=== PATIENT | male | born 1955 | race Caucasian/White ===

== ENCOUNTER 2021-07-09 10:14 | Emergency (ER) | payer BC, SELFPAY ==
[2021-07-09 11:03] VITALS: BP 131/90; PULSE 57; RESP 18; TEMP 37.1; O2SAT 99
--- NOTE | 2021-07-09 11:31 | ED.SKABFB ---
HPI - Skin/Abscess/Foreign Bdy General Chief complaint: Skin/Abscess/Foreign Body Stated complaint: Rash Time Seen by Provider: 07/09/21 11:31 Source: patient and RN notes reviewed Mode of arrival: ambulatory Limitations: no limitations History of Present Illness HPI narrative: 66-year-old male presents to the [facility] with complaints of a rash that is now red, raised and warm to the right forearm. Patient states he was clearing brush approximately 3 weeks ago and broke out in a rash, has been treating it at home over the last 3 or 4 days has become red, raised and increasingly itchy. Denies any fevers. Had been using expq-loy-uwihtrx treatments such as calamine and hydrocortisone and until 3 or 4 days ago the rash was resolving. Rash to the left anterior lower leg has improved Related Data Allergies Allergy/AdvReac Type Severity Reaction Status Date / Time No Known Allergies Allergy Unknown NONE Unverified 09/24/17 09:38 Review of Systems Review of Systems: All systems reviewed & are unremarkable except as noted in HPI and below Constitutional: Constitutional: Reports no additional constitutional complaints, Denies chills and Denies fever(s) Eyes: Eyes: Reports no additional eye complaints ENT: Reports system reviewed and no additional complaints, except as documented Cardiovascular: Cardiovascular: Reports no additional cardiovascular complaints Respiratory: Respiratory: Reports no additional respiratory complaints Musculoskeletal: Musculoskeletal: Reports no additional musculoskeletal complaints Integumentary/Breasts: Skin/Breast: Reports as per HPI and Reports rash Neurologic: Reports system reviewed and no additional complaints, except as documented Psychiatric: Psychiatric: Reports no additional psychiatric complaints Allergic/Immunologic: Allergic/Immunologic: Reports no additional allergic/immunologic complaints [facility] Past Medical History Medical History (Updated 07/09/21 @ 18:11 by Elo Forte) No significant medical problems Surgical History Surgical History (Updated 07/09/21 @ 18:11 by Elo Forte) H/O inguinal hernia repair Family History Family History Father Family history of heart disease in male family member before age 55 Other Family history of cardiovascular disease Social History Social History (Updated 07/09/21 @ 18:12 by Elo Forte) Smoking status: Never smoker Alcohol intake: never Living arrangements: with family Occupation/Education: occupation Gender identity (if verbalized by the patient): Male Comments At the time of my signature, I reviewed and agree with the nursing past medical, surgical, social, and family history. There is no relevant family history pertinent to the patient complaint. Exam Const: General: healthy appearing, no acute distress and alert Nutritional Appearance: well nourished Orientation/consciousness: patient oriented x3 Limitations: no limitations HENMT: Head: normal to inspection Ears: external ears normal Eyes: Conjunctivae: conjunctivae normal Pupils: Equal, round and reactive pupils present Neck: Neck: normal visual inspection, no lymphadenopathy and no meningeal signs Chest: Chest palpation & inspection: normal inspection of the chest Resp: Effort & Inspection: normal respiratory effort Auscultation: clear to auscultation bilaterally Cardio: Rate: regular rate Rhythm: regular rhythm GI: GI Palp: Yes Soft to palpation and No Tenderness to palpation present (GI) Back/Spine/Pelvis: Back: no CVA tenderness Skin: General skin exam: normal color Other: Rash to the volar aspect right forearm from crease of antecubital to 2 cm proximal of natural wrist, multiple scabbed areas, red, raised, warm to touch. Not circumferential approximately 5 in diameter of the forearm Neuro: General: patient oriented x3, moves all extremities, no meningeal signs and no focal
== END 2021-07-09 11:52 | disposition home or self-care (01) ==
PROVIDERS: Emergency Provider Nurse Practitioner; PCP Internal Medicine
DX: L25.5 Unspecified contact dermatitis due to plants, except food (principal); L03.113 Cellulitis of right upper limb
CPT/HCPCS: 99213; G0463

== ENCOUNTER 2022-05-30 07:55 | Outpatient (CLI) | payer BC, SELFPAY | END 2022-05-30 07:56 | disposition home or self-care (01) | LOC: ANHSURGERY 08:04 | PROVIDERS: PCP Internal Medicine; Visit Provider Surgery | DX: Z01.818 Encounter for other preprocedural examination (principal); K40.90 Unilateral inguinal hernia, without obstruction or gangrene, not specified as recurrent | CPT/HCPCS: 36415; 86850; 86900; 86901 ==

== ENCOUNTER 2022-06-03 00:26 | Day surgery (SDC) | payer BC, SELFPAY ==
[2022-05-28 13:23] VITALS: BMI 25.4
--- NOTE | 2022-05-28 13:30 | PC.NURSE ---
Report to the Outpatient Waiting Room, entrance under the green pavilion located off [facility], at time __1000 on date _06/03/22. OR Time: _1200 . - You and your visitor will be asked to self-screen and do not enter if you have any COVID symptoms. - Only one visitor and NO children visitors are allowed at this time. - The patient visitor is requested to leave or wait in car when not with patient due to restrictions. - A mask is required within the hospital. Patients may have clear liquids (water, carbonated beverages, clear teas, apple juice) until 3 hours prior to surgery with a maximum of 20 ounces. - No food from midnight until time of surgery - Infants may have breast milk until 4 hours before surgery, formula 6 hours prior to surgery. - Children will be allowed to drink immediately following surgery. If applicable, please bring a bottle or sippy cup to assist with drinking. Juice, water, soda, and popsicles are readily available. For infants on formula, please bring formula the day of surgery. Pacifiers are allowed. Take the following medications with a SIP of water the morning of surgery: NONE Medications to discontinue per physician NONE Date to take last dose Please no make-up, nail wolof, hairspray, perfume, deodorant, or body powder the day of surgery. No jewelry (including any body piercings) or valuables the day of surgery, leave them at home. Please take a shower or bath the night before, or the morning of, surgery with an HIBICLENS OR antibacterial soap. Wear comfortable, loose fitting clothing. Children are encouraged to wear pajamas. - Jewelry must be removed prior to entering the operating room. Rings and piercings that are not removed may be cut off. - The hospital will not accept responsibility for valuables. - Please leave all valuables, including medications, at home the day of surgery. If you are going home after surgery, a licensed electric lift truck driver must drive you home. - NO public transportation without another adult. - We recommend that an adult stay with you for 24 hours following discharge. - We also recommend that you do not drive, make important decision, drink alcoholic beverages, or take any drugs that were not prescribed by your health care provider for at least 24 hours after your discharge time. For Pediatric surgeries, we recommend two adults accompany the child home (only one inside the building at this time). Follow any additional instructions given to you from your surgeon. If you or anyone in your household have experienced Covid symptoms in the past week, please notify your surgeon or the nurse liaison at the phone number below for possible testing. Telephone instructions given to __PATIENT__and asked if any additional questions and then verbalized understanding. Patient advised to call surgeon office or pre surgery nurse liaison [phone] if any additional questions.
[2022-06-03] VITALS (8 sets, daily range): BP systolic 122–137; BP diastolic 70–84; PULSE 51–81; RESP 16–20; TEMP 36.3–36.4; O2SAT 98–100
--- NOTE | 2022-06-03 09:13 | WPDANESEPPF ---
Anes - Initial Pre Proc Eval Procedure: Operation Date: 06/03/22 12:00 Proposed Procedures p Laparoscopic Left Inguinal Hernia Repair with Mesh - David Lennon MD Date/Time: 06/03/22 09:13 Surgeon: David Lennon MD Pre Op Diagnosis: left inguinal hernia Patient Data Age: 66 Gender: M Height: 1.75 m Weight: 78 kg Allergies Allergy/AdvReac Type Severity Reaction Status Date / Time No Known Allergies Allergy Unknown NONE Verified 05/16/22 12:37 Home Medications Medication Instructions Recorded Confirmed Type No Home Medications 05/06/22 05/28/22 History Patient hx anesthesia problems: none Family hx anesthesia problems: none Results Review: All pre-operative results and documents have been reviewed as part of the pre-operative evaluation. [facility] Past Medical History Medical History (Updated 05/16/22 @ 13:10 by Manny Lennon APRN) Encounter for other specified surgical aftercare No significant medical problems Right inguinal hernia Routine medical exam Screening for prostate cancer Surgical History Surgical History H/O inguinal hernia repair Family History Family History Father Family history of heart disease in male family member before age 55 Other Family history of cardiovascular disease Social History Social History (Updated 05/16/22 @ 13:03 by Manny Lennon APRN) Social History: current everyday caffeine use- 2-4 cups of coffee/tea per day Smoking status: Never smoker Alcohol intake: never Substance use: never Substance use type: marijuana Other substance usage details: 4 TIMES A YEAR, EDIBLE Living arrangements: alone Additional living arrangements comments: patient is 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 Informed Consent: The patient's anesthetic plan and its attendant risks and benefits were discussed with the patient/family/POA. Questions were solicited and answers provided to the satisfaction of the patient/family/POA.
[2022-06-03] MEDS: LACTATED RINGERS 1,000 ML 30 ML IV CONT ×3 (10:50→15:05)
[2022-06-03] MEDS: KETOROLAC 15 MG/ML VIAL (*BKC) IV PUSH (10:54)
[2022-06-03] MEDS: ACETAMINOPHEN 500 MG TABLET 1000 MG PO (10:54)
--- NOTE | 2022-06-03 11:56 | WPDHPUPDATE1 ---
History and Physical Update Update Date/Time: 06/03/22 11:56 History and Physical has been reviewed, including an updated exam of the patient. There are NO changes in the patient's condition. Risks, benefits, and alternatives have been discussed and questions answered. Patient agrees to proceed with procedure.
[2022-06-03] MEDS: BUPIVACAINE/EPINEPHRINE 0.25% 50 ML VIAL 20 ML INFILTRATE (12:04)
[2022-06-03] MEDS: ceFAZolin 2 GM/D5W 50 ML 2 GM/50 ML BAG IVPB (12:04)
--- NOTE | 2022-06-03 14:20 | W.PM.PROC2 ---
Procedure Note - Detailed Date of Procedure 06/03/22 Pre-op Diagnosis left inguinal hernia Post-op Diagnosis Other ( left indirect inguinal hernia with lipoma of the cord) Procedure Performed 1. laparoscopic totally extraperitoneal left inguinal hernia repair with mesh Surgeon David Lennon MD Outer [employer] JOSE A Zabala, OR 1st assist Anesthesia General Indications The patient has had new pain and bulging in the left groin. Findings Left indirect inguinal hernia with fairly large lipoma of the cord. Description of Procedure After appropriate marking of the operative site prior to surgery, the patient was taken to the operating room. After induction of adequate general endotracheal anesthesia by [facility] staff, the patient was carefully prepped and draped in a sterile fashion. A timeout was performed confirming the procedure and site of surgery on the left. Following this, local anesthetic was infiltrated into the umbilical area and a vertical incision was made just below the umbilicus. I carefully dissected down to the the anterior rectus sheath on the left and then made a 1 cm vertical slit in the fascia just off the midline. The rectus muscle was retracted to left and then just in front of the posterior rectus sheath, a dissecting balloon was passed onto the pubic bone. After placing slight pressure on the right groin area, this was insufflated with 30 pumps, while watching with the 0 degree laparoscope. It appeared that I was in the proper plane. Following this, the dissecting balloon was removed and replaced by a Drummond cannula with a circular 30 cc conforming balloon. Following this, the 0 degree laparoscope was used to carefully place two 5mm [employer] slim trocars, At the midline or just to the right of midline. One suprapubic and other one mcc between the umbilicus and the pubic bone. Tedious dissection then occurred in the preperitoneal space exposing the Albert's ligament, the cord structures, the muscular tissue anteriorly, and the retroperitoneum. This was then able to be dissected back and we could visualize the posterior peritoneum. I then dissected up to the level of the umbilicus and it was ready for mesh placement. After carefully confirming all sites and that the mesh would cover the direct space, I carefully rolled the Large 3D Bard mesh and slid this through the 12 mm trocar at the umbilical level down into the preperitoneal space. This unfurled nicely and sat nicely against the left groin structures. It nicely covered all spaces and it went back nicely into the preperitoneal space along the anterior-superior iliac spine. I took a picture of it carefully, which showed that the mesh will cover the preperitoneal groin well, and had come down to the posterior border of the peritoneum. Once this was accomplished, I took the patient out of Trendelenburg position, rotated the patient back even, and then observed using a dissector through the higher 5 mm trocar to keep the mesh pushed down against the anterior and posterior abdominal wall retroperitoneally. The peritoneum was then allowed to fall on to the mesh and it held the mesh nicely in place. I then carefully removed each of the 5 mm trocars under direct vision and compressed the CO2 gas out of the preperitoneal space, deflating the 20 cc round balloon and removing the Cayden cannula. I was happy with the way the peritoneum laid back on the mesh. I felt this will give the patient a good preperitoneal repair. Following this an O Vicryl figure of eight suture was used to close the anterior rectus sheath on the left side of the umbilical incision and then local anesthetic was infiltrated into each of the incisions. Each 5mm site was closed with 4-0 undyed Monocryl and a running subcuticular closure of 4-0 undyed Monocryl was used on the skin of umbilicus. Surgical glue was used for dressing. Following this, the patient was taken to the recovery room in good condition.
== END 2022-06-03 15:51 | disposition home or self-care (01) ==
PROVIDERS: PCP Internal Medicine; Visit Provider Surgery
PROC: (CPT 49650; principal; 2022-06-03 12:00)
DX: K40.90 Unilateral inguinal hernia, without obstruction or gangrene, not specified as recurrent (principal); D17.6 Benign lipomatous neoplasm of spermatic cord; F12.90 Cannabis use, unspecified, uncomplicated; Z00.00 Encounter for general adult medical examination without abnormal findings
CPT/HCPCS: 49650; A9270; C1781; J0690; J1100; J1170; J1885; J2250; J2405; J2704; J2710; J3010; J7030; J7120